=== PATIENT | female | born 1965 | race Caucasian/White ===

== ENCOUNTER 2017-11-29 07:11 | Day surgery (SDC) | payer OTHER ==
[~2017-11-29 07:11] MED LIST: LIPITOR20 MG PO; MOTRIN800 MG PO
== END 2017-11-29 11:05 | disposition home or self-care (01) ==
LOC: CIR.AMB 07:11
DX: N84.0 Polyp of corpus uteri (principal)

== ENCOUNTER → 2018-06-15 | Emergency (ER) | payer OTHER ==
[~2018-06-15] VITALS: Ht 154.9 cm; Wt 58.1 kg
== END | disposition home or self-care (01) ==
LOC: ER 20:53
DX: L13.0 Dermatitis herpetiformis (principal)

== ENCOUNTER 2018-10-19 13:37 | Outpatient (CLI) | payer OTHER | END 2018-10-19 13:46 | disposition home or self-care (01) | LOC: RAD 501 13:37 | DX: M54.2 Cervicalgia (principal) ==

== ENCOUNTER 2023-06-19 12:30 | Inpatient (IN) | payer OTHER ==
[2023-06-29 19:52] LABS: HEMATOCRIT 38.3 % (36.0-45.00); HEMOGLOBIN 12.8 g/dL (12.0-15.00); MEAN CELL VOLUME 80.8 fL (80.00-100.00); MEAN CORPUSCULAR HEMOGLOBIN 26.9 pg (27.00-32.0); MEAN CORPUSCULAR HGB CONC 33.3 g/dl (32.0-36.0); PLATELET COUNT 236 K/uL (150-450); RED BLOOD COUNT 4.74 M/uL (4.00-6.00); RED CELL DISTRIBUTION WIDTH 14.2 % (11.5-14.5)
[2023-06-29 20:12] LABS: ALBUMIN 3.6 gm/dL (3.4-5.0); CALCIUM 9.1 mg/dL (8.5-10.1); CREATININE SERUM 0.84 mg/dL (0.55-1.02); GFR 69.64; MAGNESIUM 1.9 mg/dL (1.8-2.4); PHOSPHOROUS 4.4 mg/dL (2.5-4.9); POTASSIUM 4.25 mEq/L (3.5-5.1)
[2023-06-30 07:23] LABS: HEMATOCRIT 35.5 % (36.0-45.00); MEAN CELL VOLUME 81.2 fL (80.00-100.00); MEAN CORPUSCULAR HEMOGLOBIN 27.5 pg (27.00-32.0); MEAN CORPUSCULAR HGB CONC 33.9 g/dl (32.0-36.0); PLATELET COUNT 194 K/uL (150-450); RED BLOOD COUNT 4.37 M/uL (4.00-6.00); RED CELL DISTRIBUTION WIDTH 13.9 % (11.5-14.5)
[2023-06-30 07:49] LABS: ALBUMIN 3.1 gm/dL (3.4-5.0); CALCIUM 8.3 mg/dL (8.5-10.1); CREATININE SERUM 0.84 mg/dL (0.55-1.02); GFR 69.64; MAGNESIUM 2.1 mg/dL (1.8-2.4); PHOSPHOROUS 3.7 mg/dL (2.5-4.9); POTASSIUM 4.03 mEq/L (3.5-5.1)
[2023-06-30] MEDS ORDERED: TRAM1TAB98 PO (08:41)
[2023-06-30] MEDS ORDERED: HYOSCYAMINE0.125 M1 SL (08:41)
== END 2023-06-30 12:11 | disposition home or self-care (01) | DRG 358 ==
LOC: O/R 06-29 06:05 → SURH 06-29 06:05 → SURG 06-29 09:30 → SURH 06-29 13:25
PROVIDERS: ADMIT Surgery; ATTEND Surgery
PROC: 0DBW4ZZ Excision of Peritoneum, Percutaneous Endoscopic Approach (ICD-10-PCS; principal; 2023-06-29 09:30)
DX: K66.8 Other specified disorders of peritoneum (principal); K38.8 Other specified diseases of appendix; D12.0 Benign neoplasm of cecum; Z20.822 Contact with and (suspected) exposure to COVID-19; D37.3 Neoplasm of uncertain behavior of appendix; E03.9 Hypothyroidism, unspecified; E78.5 Hyperlipidemia, unspecified

== ENCOUNTER 2023-10-14 11:02 | Emergency (ER) | payer OTHER ==
[~2023-10-14] VITALS: Ht 154.9 cm; Wt 61.2 kg
[~2023-10-14 11:02] MED LIST changes: +HYOSCYAMINE0.125 M1 SL; +TRAM1TAB98 PO
[2023-10-14] MEDS ORDERED: ZETIA10 MG (11:19)
[2023-10-14] MEDS ORDERED: LEVOTHYROXINE25 MCG (11:19)
== END 2023-10-14 17:46 | disposition home or self-care (01) ==
LOC: ER 11:03
DX: S92.415A Nondisplaced fracture of proximal phalanx of left great toe, initial encounter for closed fracture (principal); W22.8XXA Striking against or struck by other objects, initial encounter; Y93.89 Activity, other specified; Y92.89 Other specified places as the place of occurrence of the external cause

== ENCOUNTER 2024-10-11 10:26 | Emergency (ER) | payer OTHER ==
[~2024-10-11] VITALS: Ht 154.9 cm; Wt 58.5 kg
[~2024-10-11 10:26] MED LIST changes: +LEVOTHYROXINE25 MCG; +ZETIA10 MG
[2024-10-11] MEDS ORDERED: METHYLPREDNISOLONE SOD SUCC 125 MG VIAL IM STA (11:21)
[2024-10-11] MEDS ORDERED: DIPHENHYDRAMINE HCL 50 MG/ML VIAL 1ML IM STA (11:21)
== END 2024-10-11 11:55 | disposition home or self-care (01) ==
LOC: ER 10:29
DX: R21 Rash and other nonspecific skin eruption (principal); T78.40XA Allergy, unspecified, initial encounter; E03.8 Other specified hypothyroidism